=== PATIENT | male | born 1940 | race Caucasian/White ===

== ENCOUNTER → 2023-02-07 | Outpatient (CLI) | payer OTHER ==
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
== END ==
LOC: RAD FS 08:11
PROVIDERS: ATTEND Nurse Practitioner Primary Care
DX: N40.0 Benign prostatic hyperplasia without lower urinary tract symptoms (principal)
CPT/HCPCS: 72192